=== PATIENT | male | born 1990 | race Two or more races ===

== ENCOUNTER 2024-01-19 22:12 | Emergency (ER) | payer OTHER ==
[~2024-01-19] VITALS: Ht 182.9 cm; Wt 95.3 kg
== END 2024-01-20 00:23 | disposition home or self-care (01) ==
LOC: ER 22:13
DX: S59.802A Other specified injuries of left elbow, initial encounter (principal); S89.82XA Other specified injuries of left lower leg, initial encounter; W19.XXXA Unspecified fall, initial encounter; Y93.89 Activity, other specified; Y92.89 Other specified places as the place of occurrence of the external cause; Y99.8 Other external cause status; Z88.0 Allergy status to penicillin